=== PATIENT | female | born 1970 | race African-American/Black ===

== ENCOUNTER 2017-08-14 13:06 | Inpatient (IN) | payer BC ==
[2017-08-14] MEDS: SOD CHLORIDE 0.9% 1,000 ML IV ×4 (13:27→18:10)
[2017-08-14 14:11] LABS: ADD MAN DIFF? NO
[2017-08-14 14:17] LABS: BASOPHIL # 0.1 10^3/ul (0.0-0.1); BASOPHILS % 0.6 % (0.0-2.0); EOSINOPHILS % 0.1 % (0.0-7.0); HEMATOCRIT 52.4 % (37.0-47.0); HEMOGLOBIN 16.1 g/dl (12.0-16.0); LYMPHOCYTES # 1.9 10^3/ul (0.8-2.9); LYMPHOCYTES % 12.7 % (15.0-51.0); MEAN CORPUSCULAR HEMOGLOBIN 30.7 pg (29.0-33.0); MEAN CORPUSCULAR HGB CONC 30.7 g/dl (32.0-37.0); MONOCYTE # 0.8 10^3/ul (0.3-0.9); MONOCYTES % 5.1 % (0.0-11.0); NEUTROPHILS % 79.8 % (39.0-77.0); PLATELET COUNT 174 10^3/UL (140-415); RED BLOOD COUNT 5.24 10^6/ul (4.20-5.40); RED CELL DISTRIBUTION WIDTH 13.2 % (11.5-14.5)
[2017-08-14 14:35] LABS: ALANINE AMINOTRANSFERASE 19 IU/L (13-69); ALBUMIN 5.1 g/dl (3.3-4.9); ALBUMIN/GLOBULIN RATIO 0.94; ALKALINE PHOSPHATASE 132 IU/L (42-121); ASPARTATE AMINO TRANSFERASE 16 IU/L (15-46); BLOOD UREA NITROGEN 15 mg/dl (7-20); CALCIUM 10.2 mg/dl (8.4-10.2); CHLORIDE 103 mmol/L (97-110); POTASSIUM 4.7 mmol/L (3.5-5.1); SODIUM 145 mmol/L (135-144); TOTAL PROTEIN 10.5 g/dl (6.1-8.1)
[2017-08-14 14:40] LABS: ACETONE POSITIVE 1:1 (NEGATIVE)
[2017-08-14 14:47] LABS: ANION GAP 42 (8-16)
[2017-08-14 14:49] LABS: CARBON DIOXIDE < 5 mmol/L (21-31); GLUCOSE 571 mg/dl (70-220); TROPONIN-I < 0.012 ng/ml (0.00-0.12)
[2017-08-14 14:56] LABS: LIPASE 7020 U/L (23-300)
[2017-08-14] MEDS ORDERED: INSULIN REGULAR 10 ML INJ IV (14:59)
[2017-08-14 15:20] LABS: INR 1.03; PARTIAL THROMBOPLASTIN TIME 25.8 Sec (25.0-35.0); PROTIME 13.6 Sec (11.9-14.9); PT RATIO 1.1
[2017-08-14 16:15] LABS: Allen Test ACCEPTAB; Arterial Base Excess -28.8 mmol/L (-3.0-3); Arterial Blood Gas Oxygen Sat 98.1 mmHG (95.0-98.0); Arterial COHb 0.5 % (0.0-3.0); Arterial Fraction of Oxyhgb 97.2 % (93.0-99.0); Arterial HCO3 2.3 mmol/L (22.0-26.0); Arterial MetHb 0.4 % (0.0-1.5); Arterial pCO2 11.4 mmhg (35-45); MODE ROOM AIR; Site Right Radial
[2017-08-14] MEDS: NA BICARBONATE 8.4% 50 ML SYG IV ×2 (16:58→16:59)
[2017-08-14] MEDS: INSULIN REGULAR, HUMAN 100 UNIT/1 ML 3ML VIAL IV (17:11)
[2017-08-14] MEDS: INSULIN HUMAN REGULAR 100 UNIT in SOD CHLORIDE 0.9% 99 ML IV (17:13)
[2017-08-14] MEDS ORDERED: INSULIN HUMAN REGULAR 100 UNIT in SOD CHLORIDE 0.9% 99 ML IV (17:24)
[2017-08-14] MEDS ORDERED: DEXTROSE 50% 50 ML SYRINGE IV ×4 (17:30→18:00)
[2017-08-14] MEDS ORDERED: ACETAMINOPHEN 325 MG TAB PO (17:30)
[2017-08-14] MEDS ORDERED: ONDANSETRON 4 MG INJ IV (17:30)
[2017-08-14 17:34] LABS: ADD UMIC YES; UR ASCORBIC ACID NEGATIVE (NEGATIVE); UR BILIRUBIN (Dip) NEGATIVE (NEGATIVE); UR BLOOD (Dip) 2+ mg/dL (NEGATIVE); UR BUDDING YEAST FEW /HPF (NONE SEEN); UR CLARITY SLIGHTLY CLOUDY (CLEAR); UR COLOR YELLOW (YELLOW); UR GLUCOSE (Dip) 3+ mg/dL (NEGATIVE); UR KETONES (Dip) 2+ mg/dL (NEGATIVE); UR LEUKOCYTE ESTERASE (Dip) NEGATIVE Leu/ul (NEGATIVE); UR NITRITE (Dip) NEGATIVE (NEGATIVE); UR RBC 5 /HPF (0-5); UR SPECIFIC GRAVITY (Dip) 1.021 (1.003-1.030); UR SQUAMOUS EPITHELIAL CELL FEW /HPF (FEW); UR TOTAL PROTEIN (Dip) 2+ mg/dl (NEGATIVE); UR UROBILINOGEN (Dip) NEGATIVE (NEGATIVE); UR WBC 1 /HPF (0-5)
[2017-08-14] MEDS: ACCU-CHEK XX ×9 (18:00→23:00)
[2017-08-14] MEDS: SOD CHLORIDE 0.45% 1,000 ML IV (18:00)
[2017-08-14] MEDS ORDERED: LABETALOL HCL 20MG INJ IV (18:00)
[2017-08-14 18:09] LABS: PHOSPHORUS 9.1 mg/dl (2.5-4.9)
[2017-08-14 18:18] LABS: HDL CHOLESTEROL 44 mg/dl (37-92); TRIGLYCERIDES 504 mg/dl (0-149)
[2017-08-14] MEDS: NICOTINE (14 MG/24 HR) PATCH TRANSDERM (18:30)
[2017-08-14 18:33] LABS: CHOLESTEROL 421 mg/dl (100-200)
[2017-08-14 18:33] LABS: CHOL/HDL RATIO 9.5 RATIO; LDL CHOLESTEROL,CALCULATED 276 mg/dl
[2017-08-14 20:47] LABS: BLOOD UREA NITROGEN 13 mg/dl (7-20); CALCIUM 8.2 mg/dl (8.4-10.2); CHLORIDE 118 mmol/L (97-110); CREATININE 1.11 mg/dl (0.44-1.00); GLUCOSE 181 mg/dl (70-220); POTASSIUM 4.2 mmol/L (3.5-5.1); SODIUM 155 mmol/L (135-144)
[2017-08-14] MEDS: LACTATED RINGER'S 1,000 ML IV (20:47)
[2017-08-14 20:48] LABS: ALBUMIN 4.3 g/dl (3.3-4.9); BLOOD UREA NITROGEN 14 mg/dl (7-20); CALCIUM 8.1 mg/dl (8.4-10.2); CHLORIDE 118 mmol/L (97-110); CREATININE 1.09 mg/dl (0.44-1.00); GLUCOSE 183 mg/dl (70-220); MAGNESIUM 1.7 mg/dl (1.7-2.5); PHOSPHORUS 4.7 mg/dl (2.5-4.9); POTASSIUM 4.1 mmol/L (3.5-5.1); SODIUM 155 mmol/L (135-144)
[2017-08-14 20:52] LABS: ANION GAP 36 (8-16)
[2017-08-14 20:55] LABS: CARBON DIOXIDE < 5 mmol/L (21-31)
[2017-08-14 20:57] LABS: ANION GAP 36 (8-16); CARBON DIOXIDE < 5 mmol/L (21-31)
[2017-08-14] MEDS ORDERED: APIXABAN 5 MG TABLET PO (21:00)
[2017-08-14] MEDS: DEXTROSE 5%-0.45% NACL 1,000 ML IV (21:55)
[2017-08-14] MEDS: BENZTROPINE 1 MG TAB PO (22:23)
[2017-08-14] MEDS: ATORVASTATIN 40 MG TAB PO (22:23)
[2017-08-14] MEDS: AMITRIPTYLINE 25 MG TAB PO (22:23)
[2017-08-14] MEDS: ENOXAPARIN 80 MG/0.8 ML SYG SC (22:24)
[2017-08-15] MEDS: ACCU-CHEK XX ×24 (00:11→23:00)
[2017-08-15] MEDS: GABAPENTIN 400 MG CAP PO ×4 (00:13→21:39)
[2017-08-15] MEDS: ZIPRASIDONE 20 MG CAP PO ×2 (00:13→22:07)
[2017-08-15] MEDS: HALOPERIDOL 5 MG TAB PO ×3 (00:13→21:42)
[2017-08-15] MEDS: SOD CHLORIDE 0.45% 1,000 ML IV ×4 (00:40→20:40)
[2017-08-15] MEDS: POTASSIUM CHLORIDE 20 MEQ in SOD CHLORIDE 0.9% 1,000 ML IV (03:17)
[2017-08-15 04:03] LABS: AADO2 Arterial 43.7 mmHg (7.0-24.0); Allen Test ACCEPTAB; Arterial Base Excess -20.6 mmol/L (-3.0-3); Arterial Blood Gas Oxygen Sat 96.2 mmHG (95.0-98.0); Arterial COHb 0.3 % (0.0-3.0); Arterial Fraction of Oxyhgb 95.5 % (93.0-99.0); Arterial HCO3 5.8 mmol/L (22.0-26.0); Arterial MetHb 0.4 % (0.0-1.5); Arterial Total Hemglobin 15.2 g/dl (12.0-18.0); Arterial pCO2 16.6 mmhg (35-45); MODE ROOM AIR; Site Right Brachial
[2017-08-15 06:17] LABS: ADD MAN DIFF? NO
[2017-08-15 06:25] LABS: BASOPHILS % 0.2 % (0.0-2.0); HEMATOCRIT 48.7 % (37.0-47.0); HEMOGLOBIN 15.2 g/dl (12.0-16.0); LYMPHOCYTES # 1.7 10^3/ul (0.8-2.9); LYMPHOCYTES % 13.6 % (15.0-51.0); MEAN CORPUSCULAR HEMOGLOBIN 31.1 pg (29.0-33.0); MEAN CORPUSCULAR HGB CONC 31.2 g/dl (32.0-37.0); MEAN CORPUSCULAR VOLUME 99.8 fl (82.0-101.0); MEAN PLATELET VOLUME 11.8 fl (7.4-10.4); MONOCYTE # 0.4 10^3/ul (0.3-0.9); MONOCYTES % 3.4 % (0.0-11.0); NEUTROPHIL # 10.2 10^3/ul (1.6-7.5); NEUTROPHILS % 82.2 % (39.0-77.0); PLATELET COUNT 131 10^3/UL (140-415); RED BLOOD COUNT 4.88 10^6/ul (4.20-5.40); RED CELL DISTRIBUTION WIDTH 13.2 % (11.5-14.5)
[2017-08-15 06:25] LABS: WHITE BLOOD COUNT 12.4 10^3/ul (4.8-10.8)
[2017-08-15 09:20] LABS: ALBUMIN 3.7 g/dl (3.3-4.9); ANION GAP 26 (8-16); BLOOD UREA NITROGEN 10 mg/dl (7-20); CALCIUM 8.2 mg/dl (8.4-10.2); CHLORIDE 116 mmol/L (97-110); GLUCOSE 241 mg/dl (70-220); MAGNESIUM 1.5 mg/dl (1.7-2.5); PHOSPHORUS 1.9 mg/dl (2.5-4.9); POTASSIUM 4.1 mmol/L (3.5-5.1); SODIUM 147 mmol/L (135-144)
[2017-08-15 09:25] LABS: CARBON DIOXIDE 9 mmol/L (21-31)
[2017-08-15 10:00] LABS: AADO2 Arterial 49.6 mmHg (7.0-24.0); Allen Test ACCEPTAB; Arterial Base Excess -16.8 mmol/L (-3.0-3); Arterial Blood Gas Oxygen Sat 95.7 mmHG (95.0-98.0); Arterial COHb 0.5 % (0.0-3.0); Arterial HCO3 8.2 mmol/L (22.0-26.0); Arterial MetHb 0.2 % (0.0-1.5); Arterial Total Hemglobin 15.5 g/dl (12.0-18.0); Arterial pCO2 19.5 mmhg (35-45); MODE ROOM AIR; Site Right Radial
[2017-08-15] MEDS: NA BICARBONATE 8.4% 50 ML SYG IV (10:33)
[2017-08-15] MEDS: ENOXAPARIN 80 MG/0.8 ML SYG SC ×2 (10:33→21:41)
[2017-08-15] MEDS: NICOTINE (14 MG/24 HR) PATCH TRANSDERM (10:34)
[2017-08-15] MEDS: MEROPENEM 1 GM/50ML(PMX) 50 ML IVPB ×2 (10:34→22:07)
[2017-08-15] MEDS: SODIUM PHOSPHATE 20 MEQ in SOD CHLORIDE 0.9% 250 ML IVPB (10:57)
[2017-08-15] MEDS: MAGNESIUM SULFATE 2 GM/50 ML 50 ML IVPB (10:57)
[2017-08-15] MEDS: BENZTROPINE 1 MG TAB PO ×2 (10:58→21:43)
[2017-08-15] MEDS: IOHEXOL 300MG/ML 150 ML BTL (12:25)
[2017-08-15] MEDS: SOD CHLORIDE 0.9% 100 ML (12:36)
[2017-08-15 12:42] LABS: ALBUMIN 3.7 g/dl (3.3-4.9); ANION GAP 25 (8-16); BLOOD UREA NITROGEN 8 mg/dl (7-20); CALCIUM 8.4 mg/dl (8.4-10.2); CARBON DIOXIDE 13 mmol/L (21-31); CHLORIDE 114 mmol/L (97-110); CREATININE 0.78 mg/dl (0.44-1.00); GLUCOSE 192 mg/dl (70-220); MAGNESIUM 2.3 mg/dl (1.7-2.5); PHOSPHORUS 1.8 mg/dl (2.5-4.9); POTASSIUM 3.4 mmol/L (3.5-5.1); SODIUM 149 mmol/L (135-144)
[2017-08-15] MEDS: SODIUM BICARBONATE (IV ADD) 150 MEQ in DEXTROSE 5%-0.45% NACL 850 ML IV ×2 (12:51→22:08)
[2017-08-15] MEDS: POTASSIUM CHLORIDE 100 ML IVPB ×2 (16:59→17:00)
[2017-08-15 17:50] LABS: ALBUMIN 3.6 g/dl (3.3-4.9); ANION GAP 22 (8-16); BLOOD UREA NITROGEN 7 mg/dl (7-20); CALCIUM 8.2 mg/dl (8.4-10.2); CARBON DIOXIDE 16 mmol/L (21-31); CHLORIDE 113 mmol/L (97-110); CREATININE 0.78 mg/dl (0.44-1.00); GLUCOSE 157 mg/dl (70-220); MAGNESIUM 2.1 mg/dl (1.7-2.5); PHOSPHORUS 1.8 mg/dl (2.5-4.9); POTASSIUM 3.6 mmol/L (3.5-5.1); SODIUM 147 mmol/L (135-144)
[2017-08-15 21:40] LABS: MAGNESIUM 2.1 mg/dl (1.7-2.5)
[2017-08-15] MEDS: ATORVASTATIN 40 MG TAB PO (21:40)
[2017-08-15] MEDS: INSULIN HUMAN REGULAR 100 UNIT in SOD CHLORIDE 0.9% 99 ML IV (21:52)
[2017-08-15] MEDS: AMITRIPTYLINE 25 MG TAB PO (22:07)
[2017-08-16] MEDS: ACCU-CHEK XX ×24 (01:00→23:18)
[2017-08-16 01:50] LABS: MAGNESIUM 2.1 mg/dl (1.7-2.5)
[2017-08-16] MEDS: SODIUM BICARBONATE (IV ADD) 150 MEQ in DEXTROSE 5%-0.45% NACL 850 ML IV ×2 (02:00→10:00)
[2017-08-16] MEDS: SOD CHLORIDE 0.45% 1,000 ML IV ×2 (03:20→10:00)
[2017-08-16] MEDS: GUAIFENESIN 20 MG/ML 5ML CUP PO ×2 (06:26→10:43)
[2017-08-16 06:27] LABS: ADD MAN DIFF? NO
[2017-08-16 06:40] LABS: BASOPHIL # 0.1 10^3/ul (0.0-0.1); BASOPHILS % 0.6 % (0.0-2.0); HEMATOCRIT 39.3 % (37.0-47.0); HEMOGLOBIN 13.6 g/dl (12.0-16.0); LYMPHOCYTES # 0.7 10^3/ul (0.8-2.9); LYMPHOCYTES % 8.4 % (15.0-51.0); MEAN CORPUSCULAR HEMOGLOBIN 31.9 pg (29.0-33.0); MEAN CORPUSCULAR HGB CONC 34.6 g/dl (32.0-37.0); MEAN PLATELET VOLUME 12.2 fl (7.4-10.4); MONOCYTE # 0.3 10^3/ul (0.3-0.9); MONOCYTES % 3.1 % (0.0-11.0); NEUTROPHIL # 7.1 10^3/ul (1.6-7.5); NEUTROPHILS % 87.3 % (39.0-77.0); PLATELET COUNT 109 10^3/UL (140-415); RED BLOOD COUNT 4.27 10^6/ul (4.20-5.40); RED CELL DISTRIBUTION WIDTH 13.6 % (11.5-14.5)
[2017-08-16 06:40] LABS: WHITE BLOOD COUNT 8.1 10^3/ul (4.8-10.8)
[2017-08-16] MEDS: BENZTROPINE 1 MG TAB PO (09:00)
[2017-08-16] MEDS: HALOPERIDOL 5 MG TAB PO (09:00)
[2017-08-16] MEDS: GABAPENTIN 400 MG CAP PO ×3 (09:00→19:31)
[2017-08-16 09:07] LABS: AADO2 Arterial 263.2 mmHg (7.0-24.0); Allen Test ACCEPTAB; Arterial Base Excess -9.9 mmol/L (-3.0-3); Arterial Blood Gas Oxygen Sat 91.4 mmHG (95.0-98.0); Arterial COHb 0.8 % (0.0-3.0); Arterial Fraction of Oxyhgb 90.5 % (93.0-99.0); Arterial HCO3 13.4 mmol/L (22.0-26.0); Arterial MetHb 0.2 % (0.0-1.5); Arterial Total Hemglobin 14.9 g/dl (12.0-18.0); Arterial pCO2 23.9 mmhg (35-45); MODE MASK - SIMPLE; Site Right Radial
[2017-08-16 10:02] LABS: MAGNESIUM 2.2 mg/dl (1.7-2.5)
[2017-08-16] MEDS: MEROPENEM 1 GM/50ML(PMX) 50 ML IVPB (10:23)
[2017-08-16 10:32] LABS: ALBUMIN 3.4 g/dl (3.3-4.9); ANION GAP 24 (8-16); BLOOD UREA NITROGEN 5 mg/dl (7-20); CALCIUM 8.6 mg/dl (8.4-10.2); CARBON DIOXIDE 15 mmol/L (21-31); CHLORIDE 115 mmol/L (97-110); CREATININE 0.82 mg/dl (0.44-1.00); GLUCOSE 200 mg/dl (70-220); PHOSPHORUS 1.6 mg/dl (2.5-4.9); POTASSIUM 3.1 mmol/L (3.5-5.1); SODIUM 151 mmol/L (135-144)
[2017-08-16] MEDS: HALOPERIDOL 5 MG INJ IM (10:34)
[2017-08-16] MEDS: ENOXAPARIN 80 MG/0.8 ML SYG SC ×2 (10:36→21:26)
[2017-08-16] MEDS: NICOTINE (14 MG/24 HR) PATCH TRANSDERM (10:44)
[2017-08-16] MEDS: POTASSIUM PHOSPHATE 40 MEQ in SOD CHLORIDE 0.9% 250 ML IVPB (11:30)
[2017-08-16] MEDS ORDERED: POTASSIUM CHLORIDE IV (12:00)
[2017-08-16] MEDS ORDERED: DEXTROSE 5% IV (12:00)
[2017-08-16] MEDS ORDERED: SODIUM BICARBONATE IV (12:00)
[2017-08-16] MEDS ORDERED: ALBUTEROL/IPRATROPIUM (NEB) 3 ML AMP HHN (13:00)
[2017-08-16] MEDS: ALBUTEROL/IPRATROPIUM (NEB) 3 ML AMP HHN ×2 (13:47→20:56)
[2017-08-16 13:48] LABS: MAGNESIUM 2.2 mg/dl (1.7-2.5)
[2017-08-16] MEDS: morphine 2 MG INJ IV (14:12)
[2017-08-16 14:32] LABS: LIPASE 1288 U/L (23-300)
[2017-08-16 15:14] LABS: AADO2 Arterial 619.2 mmHg (7.0-24.0); Allen Test ACCEPTAB; Arterial Base Excess -15.2 mmol/L (-3.0-3); Arterial Blood Gas Oxygen Sat 91.9 mmHG (95.0-98.0); Arterial COHb 0.5 % (0.0-3.0); Arterial Fraction of Oxyhgb 91.2 % (93.0-99.0); Arterial HCO3 10.6 mmol/L (22.0-26.0); Arterial MetHb 0.3 % (0.0-1.5); Arterial Total Hemglobin 15.5 g/dl (12.0-18.0); MODE MASK - NRB; Site Right Radial
[2017-08-16] MEDS: LIDOCAINE 1% (MPF) 5 ML VIAL SC (16:20)
[2017-08-16 16:38] LABS: CREATININE, RANDOM URINE 42 mg/dL (20-320); MICROALBUMIN 40.7 mg/dL; MICROALBUMIN/CREATININE RATIO 969 (<30)
[2017-08-16] MEDS: NA BICARBONATE 8.4% 50 ML SYG IV (16:57)
[2017-08-16] MEDS: [UNRECOGNIZED DRUG - OTHER] IV (17:00)
[2017-08-16] MEDS: SODIUM BICARBONATE IV (17:00)
[2017-08-16] MEDS: POTASSIUM CHLORIDE IV (17:00)
[2017-08-16] MEDS: SOD CHLORIDE 0.9% 100 ML (18:59)
[2017-08-16] MEDS: ATORVASTATIN 40 MG TAB PO (19:30)
[2017-08-16 19:31] LABS: ALBUMIN 3.2 g/dl (3.3-4.9); ANION GAP 27 (8-16); BLOOD UREA NITROGEN 6 mg/dl (7-20); CARBON DIOXIDE 17 mmol/L (21-31); CHLORIDE 114 mmol/L (97-110); CREATININE 0.85 mg/dl (0.44-1.00); GLUCOSE 369 mg/dl (70-220); PHOSPHORUS 2.7 mg/dl (2.5-4.9); POTASSIUM 3.9 mmol/L (3.5-5.1); SODIUM 154 mmol/L (135-144)
[2017-08-16] MEDS: AMITRIPTYLINE 25 MG TAB PO (19:31)
[2017-08-16] MEDS: ZIPRASIDONE 20 MG CAP PO (19:31)
[2017-08-16] MEDS: CEFEPIME 1GM/50 ML (PMX) 50 ML IVPB (21:23)
[2017-08-16] MEDS: BENZTROPINE 2 MG INJ IM (21:40)
[2017-08-16 22:34] LABS: MAGNESIUM 2.1 mg/dl (1.7-2.5)
[2017-08-17] MEDS: ACCU-CHEK XX ×19 (00:23→23:00)
[2017-08-17] MEDS: DEXTROSE 5% IV ×2 (00:26→09:15)
[2017-08-17] MEDS: SODIUM BICARBONATE IV (00:26)
[2017-08-17] MEDS: POTASSIUM CHLORIDE IV (00:26)
[2017-08-17] MEDS: INSULIN HUMAN REGULAR 100 UNIT in SOD CHLORIDE 0.9% 99 ML IV ×2 (00:35→21:04)
[2017-08-17] MEDS: morphine 2 MG INJ IV (00:37)
[2017-08-17] MEDS: ALBUTEROL/IPRATROPIUM (NEB) 3 ML AMP HHN (01:04)
[2017-08-17 01:06] LABS: MAGNESIUM 2.2 mg/dl (1.7-2.5)
[2017-08-17 01:15] LABS: POTASSIUM 3.6 mmol/L (3.5-5.1)
[2017-08-17 01:42] LABS: ALBUMIN 3.2 g/dl (3.3-4.9); ANION GAP 17 (8-16); BLOOD UREA NITROGEN 7 mg/dl (7-20); CALCIUM 8.5 mg/dl (8.4-10.2); CARBON DIOXIDE 29 mmol/L (21-31); CHLORIDE 115 mmol/L (97-110); CREATININE 0.73 mg/dl (0.44-1.00); GLUCOSE 253 mg/dl (70-220); PHOSPHORUS 0.8 mg/dl (2.5-4.9); POTASSIUM 3.6 mmol/L (3.5-5.1); SODIUM 157 mmol/L (135-144)
[2017-08-17] MEDS ORDERED: IPRATROPIUM (NEB) 0.5 MG/2.5 ML AMP HHN (04:30)
[2017-08-17] MEDS ORDERED: LEVALBUTEROL (NEB) 0.63 MG/3 ML AMP HHN (04:30)
[2017-08-17 06:29] LABS: WHITE BLOOD COUNT 10.8 10^3/ul (4.8-10.8)
[2017-08-17 06:29] LABS: ABNORMAL IP MESSAGE 1; HEMATOCRIT 38.5 % (37.0-47.0); HEMOGLOBIN 13.1 g/dl (12.0-16.0); MEAN CORPUSCULAR HEMOGLOBIN 30.9 pg (29.0-33.0); MEAN CORPUSCULAR VOLUME 90.8 fl (82.0-101.0); MEAN PLATELET VOLUME 12.3 fl (7.4-10.4); PLATELET COUNT 93 10^3/UL (140-415); RED BLOOD COUNT 4.24 10^6/ul (4.20-5.40)
[2017-08-17 06:33] LABS: ALBUMIN 3.4 g/dl (3.3-4.9); ANION GAP 18 (8-16); BLOOD UREA NITROGEN 7 mg/dl (7-20); CALCIUM 8.9 mg/dl (8.4-10.2); CARBON DIOXIDE 29 mmol/L (21-31); CHLORIDE 116 mmol/L (97-110); CREATININE 0.75 mg/dl (0.44-1.00); GLUCOSE 109 mg/dl (70-220); SODIUM 160 mmol/L (135-144)
[2017-08-17 06:35] LABS: ADD MAN DIFF? YES; POSITIVE DIFF @See below
[2017-08-17 06:51] LABS: POTASSIUM 2.8 mmol/L (3.5-5.1)
[2017-08-17 07:41] LABS: LIPASE 545 U/L (23-300)
[2017-08-17] MEDS: IPRATROPIUM (NEB) 0.5 MG/2.5 ML AMP HHN ×3 (08:00→20:08)
[2017-08-17] MEDS: LEVALBUTEROL (NEB) 0.63 MG/3 ML AMP HHN ×3 (08:00→20:08)
[2017-08-17 08:15] LABS: BAND NEUTROPHILS #M 2.4 10^3/ul (0.0-0.6); BAND NEUTROPHILS % (M) 23 % (0-4); LYMPHOCYTES #M 1.6 10^3/ul (0.8-2.9); LYMPHOCYTES % (M) 15 % (15-51); MONOCYTE #M 0.2 10^3/ul (0.3-0.9); MONOCYTES % (M) 2 % (0-11); PLATELET ESTIMATE DECREASED; POLYCHROMASIA 2+ (0-0); SEG NEUT #M 6.7 10^3/ul (1.6-7.5); SEGMENTED NEUTROPHILS (M) % 60 % (39-77); SMUDGE%M 4 % (0-0)
[2017-08-17] MEDS: GABAPENTIN 400 MG CAP PO ×3 (09:00→20:10)
[2017-08-17] MEDS ORDERED: ASPIRIN 300 MG SUPP PR (09:30)
[2017-08-17] MEDS: HALOPERIDOL 5 MG INJ IM (09:43)
[2017-08-17] MEDS: BENZTROPINE 2 MG INJ IM ×2 (09:52→20:47)
[2017-08-17] MEDS: NICOTINE (14 MG/24 HR) PATCH TRANSDERM (09:58)
[2017-08-17] MEDS: ENOXAPARIN 80 MG/0.8 ML SYG SC ×2 (09:59→20:45)
[2017-08-17] MEDS ORDERED: GLUCAGON 1 MG INJ IM (10:00)
[2017-08-17] MEDS ORDERED: DEXTROSE 50% 50 ML SYRINGE IV ×3 (10:00→18:00)
[2017-08-17] MEDS ORDERED: GLUCOSE GEL 15 GRAM TUBE PO ×2 (10:00)
[2017-08-17] MEDS ORDERED: GLUCOSE GEL 15 GRAM TUBE BUCCAL (10:00)
[2017-08-17] MEDS: POTASSIUM CHLORIDE 20 MEQ/SW 100 ML IVPB (10:01)
[2017-08-17] MEDS: DEXTROSE 5% 1,000 ML IV ×2 (10:06→18:24)
[2017-08-17] MEDS: CEFEPIME 1GM/50 ML (PMX) 50 ML IVPB ×2 (10:24→20:45)
[2017-08-17] MEDS: INSULIN GLARGINE [LANtus] 3 ML PEN SC (11:38)
[2017-08-17] MEDS: POTASSIUM PHOSPHATE 30 MM in SOD CHLORIDE 0.9% 250 ML IVPB (12:26)
[2017-08-17] MEDS: POTASSIUM CHLORIDE 10 MEQ in SOD CHLORIDE 0.9% 100 ML IVPB (12:35)
[2017-08-17] MEDS: INSULIN ASPART [NOVOLOG] 3 ML PEN SC ×2 (14:03→17:00)
[2017-08-17 15:28] LABS: ALBUMIN 3.4 g/dl (3.3-4.9); ANION GAP 22 (8-16); BLOOD UREA NITROGEN 9 mg/dl (7-20); CALCIUM 8.5 mg/dl (8.4-10.2); CARBON DIOXIDE 22 mmol/L (21-31); CHLORIDE 113 mmol/L (97-110); CREATININE 0.77 mg/dl (0.44-1.00); GLUCOSE 264 mg/dl (70-220); PHOSPHORUS 2.1 mg/dl (2.5-4.9); POTASSIUM 3.4 mmol/L (3.5-5.1); SODIUM 154 mmol/L (135-144)
[2017-08-17 18:23] LABS: AADO2 Arterial 632.2 mmHg (7.0-24.0); Allen Test ACCEPTAB; Arterial Base Excess -10.8 mmol/L (-3.0-3); Arterial Blood Gas Oxygen Sat 89.8 mmHG (95.0-98.0); Arterial COHb 0.5 % (0.0-3.0); Arterial Fraction of Oxyhgb 89.3 % (93.0-99.0); Arterial HCO3 12.6 mmol/L (22.0-26.0); Arterial MetHb 0.1 % (0.0-1.5); Arterial Total Hemglobin 13.7 g/dl (12.0-18.0); Arterial pCO2 23.2 mmhg (35-45); MODE MASK - NRB; Site Left Radial
[2017-08-17] MEDS: METHYLPREDNISOLONE 125 MG INJ IV ×2 (18:31→23:43)
[2017-08-17 19:18] LABS: ALBUMIN 3.5 g/dl (3.3-4.9); ANION GAP 30 (8-16); BLOOD UREA NITROGEN 8 mg/dl (7-20); CALCIUM 8.8 mg/dl (8.4-10.2); CARBON DIOXIDE 14 mmol/L (21-31); CHLORIDE 113 mmol/L (97-110); CREATININE 0.86 mg/dl (0.44-1.00); GLUCOSE 352 mg/dl (70-220); MAGNESIUM 2.3 mg/dl (1.7-2.5); PHOSPHORUS 2.5 mg/dl (2.5-4.9); POTASSIUM 3.3 mmol/L (3.5-5.1); SODIUM 154 mmol/L (135-144)
[2017-08-17 19:24] LABS: B-TYPE NATRIURETIC PEPTIDE 273 PG/ML (0-125)
[2017-08-17] MEDS: SODIUM BICARBONATE (IV ADD) 150 MEQ in DEXTROSE 5% 1,000 ML IV (19:30)
[2017-08-17] MEDS ORDERED: POTASSIUM CHLORIDE 50 ML IVPB (20:00)
[2017-08-17] MEDS ORDERED: INSULIN GLARGINE [LANtus] 3 ML PEN SC (20:00)
[2017-08-17] MEDS: ATORVASTATIN 40 MG TAB PO (20:11)
[2017-08-17] MEDS: AMITRIPTYLINE 25 MG TAB PO (20:11)
[2017-08-17] MEDS: ZIPRASIDONE 20 MG CAP PO (20:11)
[2017-08-17] MEDS: HALOPERIDOL 5 MG TAB PO (20:18)
[2017-08-17] MEDS: POTASSIUM CHLORIDE 100 ML IVPB ×2 (21:15→23:42)
[2017-08-17 21:46] LABS: AADO2 Arterial 495.4 mmHg (7.0-24.0); Allen Test ACCEPTAB; Arterial Base Excess -13.4 mmol/L (-3.0-3); Arterial COHb 0.5 % (0.0-3.0); Arterial Fraction of Oxyhgb 98.1 % (93.0-99.0); Arterial HCO3 12.8 mmol/L (22.0-26.0); Arterial MetHb 0.4 % (0.0-1.5); Arterial Total Hemglobin 13.7 g/dl (12.0-18.0); Arterial pCO2 31.2 mmhg (35-45); Blood Gas IEPAP 15/5; MODE MASK - BIPAP; Site Left Radial
[2017-08-18] MEDS: ACCU-CHEK XX ×25 (00:09→23:01)
[2017-08-18] MEDS: IPRATROPIUM (NEB) 0.5 MG/2.5 ML AMP HHN ×4 (01:26→19:58)
[2017-08-18] MEDS: LEVALBUTEROL (NEB) 0.63 MG/3 ML AMP HHN ×4 (01:26→19:58)
[2017-08-18] MEDS: GUAIFENESIN 20 MG/ML 5ML CUP PO ×3 (01:51→21:34)
[2017-08-18 02:51] LABS: ALBUMIN 3.6 g/dl (3.3-4.9); ANION GAP 17 (8-16); BLOOD UREA NITROGEN 10 mg/dl (7-20); CALCIUM 8.8 mg/dl (8.4-10.2); CARBON DIOXIDE 26 mmol/L (21-31); CHLORIDE 114 mmol/L (97-110); GLUCOSE 139 mg/dl (70-220); MAGNESIUM 2.5 mg/dl (1.7-2.5); PHOSPHORUS 1.8 mg/dl (2.5-4.9); POTASSIUM 4.2 mmol/L (3.5-5.1); SODIUM 153 mmol/L (135-144)
[2017-08-18] MEDS: POTASSIUM CHLORIDE 10 MEQ in DEXTROSE 5% 1,000 ML IV ×3 (03:35→23:44)
[2017-08-18] MEDS: POTASSIUM PHOSPHATE 30 MM in SOD CHLORIDE 0.9% 250 ML IVPB (03:36)
[2017-08-18] MEDS: METHYLPREDNISOLONE 125 MG INJ IV (05:30)
[2017-08-18 06:41] LABS: ALBUMIN 3.2 g/dl (3.3-4.9); ANION GAP 16 (8-16); BLOOD UREA NITROGEN 10 mg/dl (7-20); CALCIUM 8.4 mg/dl (8.4-10.2); CARBON DIOXIDE 25 mmol/L (21-31); CHLORIDE 114 mmol/L (97-110); CREATININE 0.76 mg/dl (0.44-1.00); GLUCOSE 214 mg/dl (70-220); MAGNESIUM 2.4 mg/dl (1.7-2.5); PHOSPHORUS 2.8 mg/dl (2.5-4.9); POTASSIUM 4.3 mmol/L (3.5-5.1); SODIUM 151 mmol/L (135-144)
[2017-08-18 06:49] LABS: ADD MAN DIFF? NO
[2017-08-18 06:59] LABS: ABNORMAL IP MESSAGE 1; BASOPHILS % 0.1 % (0.0-2.0); HEMATOCRIT 35.2 % (37.0-47.0); HEMOGLOBIN 11.9 g/dl (12.0-16.0); LYMPHOCYTES # 0.5 10^3/ul (0.8-2.9); LYMPHOCYTES % 5.9 % (15.0-51.0); MEAN CORPUSCULAR HEMOGLOBIN 31.4 pg (29.0-33.0); MEAN CORPUSCULAR HGB CONC 33.8 g/dl (32.0-37.0); MEAN CORPUSCULAR VOLUME 92.9 fl (82.0-101.0); MEAN PLATELET VOLUME 12.5 fl (7.4-10.4); MONOCYTE # 0.2 10^3/ul (0.3-0.9); MONOCYTES % 2.4 % (0.0-11.0); NEUTROPHIL # 8.3 10^3/ul (1.6-7.5); NEUTROPHILS % 91.3 % (39.0-77.0); PLATELET COUNT 89 10^3/UL (140-415); POSITIVE DIFF @See below; RED BLOOD COUNT 3.79 10^6/ul (4.20-5.40); RED CELL DISTRIBUTION WIDTH 14.6 % (11.5-14.5)
[2017-08-18 08:22] LABS: AADO2 Arterial 494.7 mmHg (7.0-24.0); Allen Test ACCEPTAB; Arterial Base Excess -2.3 mmol/L (-3.0-3); Arterial Blood Gas Oxygen Sat 97.7 mmHG (95.0-98.0); Arterial COHb 0.5 % (0.0-3.0); Arterial HCO3 23.3 mmol/L (22.0-26.0); Arterial MetHb 0.2 % (0.0-1.5); Arterial Total Hemglobin 13.4 g/dl (12.0-18.0); Arterial pCO2 42.8 mmhg (35-45); Blood Gas IEPAP 15/5; Blood Gas PS 10; MODE BIPAP - S/T; Site Left Radial
[2017-08-18] MEDS: GABAPENTIN 400 MG CAP PO ×3 (09:01→20:55)
[2017-08-18] MEDS: CEFEPIME 1GM/50 ML (PMX) 50 ML IVPB ×2 (09:01→20:54)
[2017-08-18] MEDS: HALOPERIDOL 5 MG TAB PO ×2 (09:02→20:55)
[2017-08-18] MEDS: ENOXAPARIN 80 MG/0.8 ML SYG SC ×2 (09:03→22:01)
[2017-08-18] MEDS: NICOTINE (14 MG/24 HR) PATCH TRANSDERM (09:05)
[2017-08-18] MEDS: BENZTROPINE 1 MG TAB PO ×2 (10:21→21:34)
[2017-08-18] MEDS: INSULIN HUMAN REGULAR 100 UNIT in SOD CHLORIDE 0.9% 99 ML IV (15:28)
[2017-08-18 18:31] LABS: ALBUMIN 2.9 g/dl (3.3-4.9); ANION GAP 15 (8-16); BLOOD UREA NITROGEN 11 mg/dl (7-20); CALCIUM 8.1 mg/dl (8.4-10.2); CARBON DIOXIDE 25 mmol/L (21-31); CHLORIDE 114 mmol/L (97-110); GLUCOSE 205 mg/dl (70-220); PHOSPHORUS 2.8 mg/dl (2.5-4.9); POTASSIUM 4.3 mmol/L (3.5-5.1); SODIUM 150 mmol/L (135-144)
[2017-08-18 20:54] LABS: ADD MAN DIFF? NO
[2017-08-18] MEDS: METHYLPREDNISOLONE 40 MG INJ IV (20:54)
[2017-08-18 20:55] LABS: ABNORMAL IP MESSAGE 1; BASOPHILS % 0.1 % (0.0-2.0); HEMATOCRIT 34.1 % (37.0-47.0); HEMOGLOBIN 11.6 g/dl (12.0-16.0); LYMPHOCYTES # 1.1 10^3/ul (0.8-2.9); LYMPHOCYTES % 9.6 % (15.0-51.0); MEAN CORPUSCULAR HEMOGLOBIN 30.9 pg (29.0-33.0); MEAN CORPUSCULAR VOLUME 90.7 fl (82.0-101.0); MEAN PLATELET VOLUME 11.8 fl (7.4-10.4); MONOCYTE # 0.5 10^3/ul (0.3-0.9); MONOCYTES % 4.3 % (0.0-11.0); NEUTROPHIL # 9.3 10^3/ul (1.6-7.5); NEUTROPHILS % 85.6 % (39.0-77.0); PLATELET COUNT 96 10^3/UL (140-415); RED BLOOD COUNT 3.76 10^6/ul (4.20-5.40); RED CELL DISTRIBUTION WIDTH 14.3 % (11.5-14.5)
[2017-08-18 20:55] LABS: WHITE BLOOD COUNT 10.9 10^3/ul (4.8-10.8)
[2017-08-18] MEDS: AMITRIPTYLINE 25 MG TAB PO (20:55)
[2017-08-18] MEDS: ATORVASTATIN 40 MG TAB PO (20:55)
[2017-08-18] MEDS: ZIPRASIDONE 20 MG CAP PO (20:55)
[2017-08-19] MEDS: ACCU-CHEK XX ×26 (00:03→22:24)
[2017-08-19] MEDS: IPRATROPIUM (NEB) 0.5 MG/2.5 ML AMP HHN ×4 (01:48→19:49)
[2017-08-19] MEDS: LEVALBUTEROL (NEB) 0.63 MG/3 ML AMP HHN ×4 (01:48→19:49)
[2017-08-19] MEDS: INSULIN HUMAN REGULAR 100 UNIT in SOD CHLORIDE 0.9% 99 ML IV (04:25)
[2017-08-19 04:54] LABS: ADD MAN DIFF? NO
[2017-08-19 05:02] LABS: BASOPHILS % 0.1 % (0.0-2.0); HEMATOCRIT 35.3 % (37.0-47.0); LYMPHOCYTES # 0.8 10^3/ul (0.8-2.9); LYMPHOCYTES % 7.7 % (15.0-51.0); MEAN CORPUSCULAR HEMOGLOBIN 30.8 pg (29.0-33.0); MEAN CORPUSCULAR VOLUME 90.7 fl (82.0-101.0); MEAN PLATELET VOLUME 11.8 fl (7.4-10.4); MONOCYTE # 0.4 10^3/ul (0.3-0.9); MONOCYTES % 3.5 % (0.0-11.0); NEUTROPHILS % 88.1 % (39.0-77.0); PLATELET COUNT 103 10^3/UL (140-415); RED BLOOD COUNT 3.89 10^6/ul (4.20-5.40); RED CELL DISTRIBUTION WIDTH 14.3 % (11.5-14.5)
[2017-08-19 05:02] LABS: WHITE BLOOD COUNT 10.2 10^3/ul (4.8-10.8)
[2017-08-19 05:26] LABS: ALANINE AMINOTRANSFERASE 30 IU/L (13-69); ALBUMIN 3.2 g/dl (3.3-4.9); ALBUMIN/GLOBULIN RATIO 0.86; ALKALINE PHOSPHATASE 184 IU/L (42-121); ANION GAP 10 (8-16); ASPARTATE AMINO TRANSFERASE 41 IU/L (15-46); BILIRUBIN,INDIRECT 0.3 mg/dl (0-1.1); BILIRUBIN,TOTAL 0.3 mg/dl (0.2-1.3); BLOOD UREA NITROGEN 11 mg/dl (7-20); CALCIUM 8.8 mg/dl (8.4-10.2); CARBON DIOXIDE 29 mmol/L (21-31); CHLORIDE 111 mmol/L (97-110); CREATININE 0.77 mg/dl (0.44-1.00); GLUCOSE 168 mg/dl (70-220); POTASSIUM 3.8 mmol/L (3.5-5.1); SODIUM 146 mmol/L (135-144); TOTAL PROTEIN 6.9 g/dl (6.1-8.1)
[2017-08-19 05:36] LABS: LIPASE 426 U/L (23-300)
[2017-08-19] MEDS: CEFEPIME 1GM/50 ML (PMX) 50 ML IVPB ×2 (08:39→20:52)
[2017-08-19] MEDS: METHYLPREDNISOLONE 40 MG INJ IV ×2 (08:39→20:52)
[2017-08-19] MEDS: GABAPENTIN 400 MG CAP PO ×3 (08:40→20:52)
[2017-08-19] MEDS: BENZTROPINE 1 MG TAB PO ×2 (08:40→20:51)
[2017-08-19] MEDS: NICOTINE (14 MG/24 HR) PATCH TRANSDERM (08:42)
[2017-08-19] MEDS: HALOPERIDOL 5 MG TAB PO ×2 (08:42→20:51)
[2017-08-19] MEDS: POTASSIUM CHLORIDE 10 MEQ in DEXTROSE 5% 1,000 ML IV ×2 (08:44→19:52)
[2017-08-19] MEDS ORDERED: POTASSIUM CHLORIDE 50 ML (08:44)
[2017-08-19] MEDS: ENOXAPARIN 80 MG/0.8 ML SYG SC ×2 (09:01→21:00)
[2017-08-19] MEDS: POTASSIUM CHLORIDE 50 ML IVPB (16:40)
[2017-08-19 19:34] LABS: POTASSIUM 3.8 mmol/L (3.5-5.1)
[2017-08-19 19:45] LABS: MAGNESIUM 2.3 mg/dl (1.7-2.5)
[2017-08-19] MEDS: ZIPRASIDONE 20 MG CAP PO (20:51)
[2017-08-19] MEDS: ATORVASTATIN 40 MG TAB PO (20:51)
[2017-08-19] MEDS: GUAIFENESIN 20 MG/ML 5ML CUP PO (20:51)
[2017-08-19] MEDS: AMITRIPTYLINE 25 MG TAB PO (20:52)
[2017-08-19] MEDS: POTASSIUM CHLORIDE 10 MEQ in SOD CHLORIDE 0.9% 100 ML IVPB (21:59)
[2017-08-20] MEDS: ACCU-CHEK XX ×25 (00:02→23:50)
[2017-08-20] MEDS: LEVALBUTEROL (NEB) 0.63 MG/3 ML AMP HHN ×4 (01:26→19:06)
[2017-08-20] MEDS: IPRATROPIUM (NEB) 0.5 MG/2.5 ML AMP HHN ×4 (01:26→19:06)
[2017-08-20 05:12] LABS: ADD MAN DIFF? NO
[2017-08-20 05:17] LABS: WHITE BLOOD COUNT 5.6 10^3/ul (4.8-10.8)
[2017-08-20 05:17] LABS: ABNORMAL IP MESSAGE 1; BASOPHILS % 0.4 % (0.0-2.0); HEMATOCRIT 34.4 % (37.0-47.0); HEMOGLOBIN 11.4 g/dl (12.0-16.0); LYMPHOCYTES # 0.6 10^3/ul (0.8-2.9); LYMPHOCYTES % 9.8 % (15.0-51.0); MEAN CORPUSCULAR HEMOGLOBIN 30.9 pg (29.0-33.0); MEAN CORPUSCULAR HGB CONC 33.1 g/dl (32.0-37.0); MEAN CORPUSCULAR VOLUME 93.2 fl (82.0-101.0); MEAN PLATELET VOLUME 11.9 fl (7.4-10.4); MONOCYTE # 0.3 10^3/ul (0.3-0.9); NEUTROPHIL # 4.7 10^3/ul (1.6-7.5); NEUTROPHILS % 84.1 % (39.0-77.0); PLATELET COUNT 132 10^3/UL (140-415); RED BLOOD COUNT 3.69 10^6/ul (4.20-5.40); RED CELL DISTRIBUTION WIDTH 14.5 % (11.5-14.5)
[2017-08-20 05:26] LABS: POSITIVE DIFF @See below
[2017-08-20 05:40] LABS: ALANINE AMINOTRANSFERASE 28 IU/L (13-69); ALBUMIN 2.8 g/dl (3.3-4.9); ALBUMIN/GLOBULIN RATIO 0.82; ALKALINE PHOSPHATASE 162 IU/L (42-121); ANION GAP 15 (8-16); ASPARTATE AMINO TRANSFERASE 26 IU/L (15-46); BILIRUBIN,INDIRECT 0.3 mg/dl (0-1.1); BILIRUBIN,TOTAL 0.3 mg/dl (0.2-1.3); BLOOD UREA NITROGEN 11 mg/dl (7-20); CALCIUM 8.7 mg/dl (8.4-10.2); CARBON DIOXIDE 27 mmol/L (21-31); CHLORIDE 110 mmol/L (97-110); CREATININE 0.67 mg/dl (0.44-1.00); GLUCOSE 164 mg/dl (70-220); POTASSIUM 3.6 mmol/L (3.5-5.1); SODIUM 148 mmol/L (135-144); TOTAL PROTEIN 6.2 g/dl (6.1-8.1)
[2017-08-20] MEDS: POTASSIUM CHLORIDE 10 MEQ in DEXTROSE 5% 1,000 ML IV ×2 (05:57→17:11)
[2017-08-20 08:00] LABS: AADO2 Arterial 271.6 mmHg (7.0-24.0); Allen Test ACCEPTAB; Arterial Base Excess 0.1 mmol/L (-3.0-3); Arterial Blood Gas Oxygen Sat 95.1 mmHG (95.0-98.0); Arterial COHb 0.9 % (0.0-3.0); Arterial Fraction of Oxyhgb 94.1 % (93.0-99.0); Arterial HCO3 25.3 mmol/L (22.0-26.0); Arterial MetHb 0.2 % (0.0-1.5); Arterial Total Hemglobin 15.1 g/dl (12.0-18.0); Arterial pCO2 42.7 mmhg (35-45); Blood Gas IEPAP 15/5; MODE MASK - BIPAP; Site Right Radial
[2017-08-20] MEDS: METHYLPREDNISOLONE 40 MG INJ IV ×2 (08:01→21:07)
[2017-08-20] MEDS: BENZTROPINE 1 MG TAB PO ×2 (08:01→20:59)
[2017-08-20] MEDS: GABAPENTIN 400 MG CAP PO ×3 (08:02→21:00)
[2017-08-20] MEDS: HALOPERIDOL 5 MG TAB PO ×2 (08:02→21:00)
[2017-08-20] MEDS: CEFEPIME 1GM/50 ML (PMX) 50 ML IVPB ×2 (08:02→21:07)
[2017-08-20] MEDS: ENOXAPARIN 80 MG/0.8 ML SYG SC ×2 (08:04→21:10)
[2017-08-20] MEDS: NICOTINE (14 MG/24 HR) PATCH TRANSDERM (08:11)
[2017-08-20] MEDS: POTASSIUM CHLORIDE 20 MEQ/SW 100 ML IVPB (09:00)
[2017-08-20] MEDS: FUROSEMIDE 40 MG INJ IV (11:00)
[2017-08-20] MEDS: GUAIFENESIN 20 MG/ML 5ML CUP PO (11:22)
[2017-08-20 13:33] LABS: AADO2 Arterial 378.3 mmHg (7.0-24.0); Allen Test ACCEPTAB; Arterial Base Excess 2.6 mmol/L (-3.0-3); Arterial Blood Gas Oxygen Sat 95.6 mmHG (95.0-98.0); Arterial COHb 0.9 % (0.0-3.0); Arterial Fraction of Oxyhgb 94.5 % (93.0-99.0); Arterial HCO3 27.2 mmol/L (22.0-26.0); Arterial MetHb 0.2 % (0.0-1.5); Arterial Total Hemglobin 12.9 g/dl (12.0-18.0); Arterial pCO2 41.7 mmhg (35-45); MODE HFNC; Site Right Radial
[2017-08-20] MEDS: INSULIN HUMAN REGULAR 100 UNIT in SOD CHLORIDE 0.9% 99 ML IV ×2 (16:33)
[2017-08-20] MEDS ORDERED: DOCUSATE SODIUM 100 MG CAP PO (17:30)
[2017-08-20] MEDS: POLYETHYLENE GLYCOL 17 GM PACKET PO (17:48)
[2017-08-20] MEDS: morphine 2 MG INJ IV (19:33)
[2017-08-20] MEDS: ZIPRASIDONE 20 MG CAP PO (20:59)
[2017-08-20] MEDS: AMITRIPTYLINE 25 MG TAB PO (20:59)
[2017-08-20] MEDS: ATORVASTATIN 40 MG TAB PO (21:00)
[2017-08-21] MEDS: ACCU-CHEK XX ×24 (01:01→23:12)
[2017-08-21] MEDS: LEVALBUTEROL (NEB) 0.63 MG/3 ML AMP HHN ×4 (01:33→20:02)
[2017-08-21] MEDS: IPRATROPIUM (NEB) 0.5 MG/2.5 ML AMP HHN ×4 (01:33→20:02)
[2017-08-21] MEDS: POTASSIUM CHLORIDE 10 MEQ in DEXTROSE 5% 1,000 ML IV ×2 (03:49→16:23)
[2017-08-21 05:44] LABS: ADD MAN DIFF? NO
[2017-08-21 05:45] LABS: BASOPHILS % 0.2 % (0.0-2.0); EOSINOPHILS % 0.2 % (0.0-7.0); HEMATOCRIT 33.4 % (37.0-47.0); HEMOGLOBIN 11.1 g/dl (12.0-16.0); LYMPHOCYTES # 1.2 10^3/ul (0.8-2.9); LYMPHOCYTES % 23.6 % (15.0-51.0); MEAN CORPUSCULAR HEMOGLOBIN 31.4 pg (29.0-33.0); MEAN CORPUSCULAR HGB CONC 33.2 g/dl (32.0-37.0); MEAN CORPUSCULAR VOLUME 94.4 fl (82.0-101.0); MEAN PLATELET VOLUME 10.9 fl (7.4-10.4); MONOCYTE # 0.2 10^3/ul (0.3-0.9); NEUTROPHIL # 3.6 10^3/ul (1.6-7.5); NEUTROPHILS % 71.2 % (39.0-77.0); PLATELET COUNT 150 10^3/UL (140-415); RED BLOOD COUNT 3.54 10^6/ul (4.20-5.40); RED CELL DISTRIBUTION WIDTH 14.5 % (11.5-14.5)
[2017-08-21 06:07] LABS: ALBUMIN 2.8 g/dl (3.3-4.9); ANION GAP 9 (8-16); BLOOD UREA NITROGEN 9 mg/dl (7-20); CALCIUM 8.8 mg/dl (8.4-10.2); CARBON DIOXIDE 32 mmol/L (21-31); CHLORIDE 108 mmol/L (97-110); CREATININE 0.67 mg/dl (0.44-1.00); GLUCOSE 116 mg/dl (70-220); MAGNESIUM 1.9 mg/dl (1.7-2.5); PHOSPHORUS 2.6 mg/dl (2.5-4.9); POTASSIUM 4.1 mmol/L (3.5-5.1); SODIUM 145 mmol/L (135-144)
[2017-08-21 06:08] LABS: ANION GAP 10 (8-16); BLOOD UREA NITROGEN 9 mg/dl (7-20); CALCIUM 8.8 mg/dl (8.4-10.2); CARBON DIOXIDE 31 mmol/L (21-31); CHLORIDE 108 mmol/L (97-110); CREATININE 0.66 mg/dl (0.44-1.00); GLUCOSE 114 mg/dl (70-220); POTASSIUM 4.1 mmol/L (3.5-5.1); SODIUM 145 mmol/L (135-144)
[2017-08-21 06:10] LABS: LIPASE 391 U/L (23-300)
[2017-08-21] MEDS: morphine 2 MG INJ IV ×3 (06:30→18:31)
[2017-08-21 08:41] LABS: AADO2 Arterial 400.4 mmHg (7.0-24.0); Allen Test ACCEPTAB; Arterial Base Excess 3.2 mmol/L (-3.0-3); Arterial Blood Gas Oxygen Sat 96.7 mmHG (95.0-98.0); Arterial COHb 0.8 % (0.0-3.0); Arterial Fraction of Oxyhgb 95.7 % (93.0-99.0); Arterial HCO3 28.1 mmol/L (22.0-26.0); Arterial MetHb 0.2 % (0.0-1.5); Arterial Total Hemglobin 11.7 g/dl (12.0-18.0); Arterial pCO2 44.1 mmhg (35-45); MODE HFNC; Site Right Radial
[2017-08-21] MEDS: HALOPERIDOL 5 MG TAB PO ×2 (09:36→20:43)
[2017-08-21] MEDS: BENZTROPINE 1 MG TAB PO ×2 (09:38→20:43)
[2017-08-21] MEDS: METHYLPREDNISOLONE 40 MG INJ IV ×2 (09:39→20:43)
[2017-08-21] MEDS: GABAPENTIN 400 MG CAP PO ×3 (09:39→20:43)
[2017-08-21] MEDS: ENOXAPARIN 80 MG/0.8 ML SYG SC ×2 (09:40→20:53)
[2017-08-21] MEDS: CEFEPIME 1GM/50 ML (PMX) 50 ML IVPB ×2 (09:40→20:43)
[2017-08-21] MEDS: POLYETHYLENE GLYCOL 17 GM PACKET PO (09:40)
[2017-08-21] MEDS: FUROSEMIDE 40 MG INJ IV ×2 (09:41→18:04)
[2017-08-21] MEDS: NICOTINE (14 MG/24 HR) PATCH TRANSDERM (12:19)
[2017-08-21] MEDS: INSULIN HUMAN REGULAR 100 UNIT in SOD CHLORIDE 0.9% 99 ML IV (14:50)
[2017-08-21] MEDS: ZIPRASIDONE 20 MG CAP PO (20:42)
[2017-08-21] MEDS: AMITRIPTYLINE 25 MG TAB PO (20:42)
[2017-08-21] MEDS: ATORVASTATIN 40 MG TAB PO (20:43)
[2017-08-22] MEDS: ACCU-CHEK XX ×15 (01:44→13:36)
[2017-08-22] MEDS: IPRATROPIUM (NEB) 0.5 MG/2.5 ML AMP HHN ×4 (02:08→19:43)
[2017-08-22] MEDS: LEVALBUTEROL (NEB) 0.63 MG/3 ML AMP HHN ×4 (02:08→19:43)
[2017-08-22] MEDS: morphine 2 MG INJ IV ×3 (02:33→18:49)
[2017-08-22] MEDS: POTASSIUM CHLORIDE 10 MEQ in DEXTROSE 5% 1,000 ML IV (03:37)
[2017-08-22] MEDS: FUROSEMIDE 40 MG INJ IV ×2 (05:57→18:01)
[2017-08-22 06:48] LABS: ANION GAP 11 (8-16); BLOOD UREA NITROGEN 9 mg/dl (7-20); CALCIUM 8.9 mg/dl (8.4-10.2); CARBON DIOXIDE 35 mmol/L (21-31); CHLORIDE 100 mmol/L (97-110); CREATININE 0.69 mg/dl (0.44-1.00); GLUCOSE 137 mg/dl (70-220); MAGNESIUM 1.6 mg/dl (1.7-2.5); PHOSPHORUS 3.1 mg/dl (2.5-4.9); POTASSIUM 3.9 mmol/L (3.5-5.1); SODIUM 142 mmol/L (135-144)
[2017-08-22] MEDS: HALOPERIDOL 5 MG TAB PO ×2 (08:55→21:24)
[2017-08-22] MEDS: BENZTROPINE 1 MG TAB PO ×2 (08:57→21:27)
[2017-08-22] MEDS: GABAPENTIN 400 MG CAP PO ×3 (08:57→21:24)
[2017-08-22] MEDS: CEFEPIME 1GM/50 ML (PMX) 50 ML IVPB ×2 (08:58→21:25)
[2017-08-22] MEDS: METHYLPREDNISOLONE 40 MG INJ IV ×2 (08:58→21:25)
[2017-08-22] MEDS: NICOTINE (14 MG/24 HR) PATCH TRANSDERM (09:00)
[2017-08-22] MEDS: POLYETHYLENE GLYCOL 17 GM PACKET PO (09:00)
[2017-08-22] MEDS: ENOXAPARIN 80 MG/0.8 ML SYG SC (09:01)
[2017-08-22 09:09] LABS: AADO2 Arterial 216.5 mmHg (7.0-24.0); Allen Test ACCEPTAB; Arterial Base Excess 11.1 mmol/L (-3.0-3); Arterial HCO3 36.6 mmol/L (22.0-26.0); Arterial pCO2 50.5 mmhg (35-45); MODE HFNC; Site Right Radial
[2017-08-22] MEDS: DEXTROSE 5% IV (10:07)
[2017-08-22] MEDS: POTASSIUM CHLORIDE IV (10:07)
[2017-08-22] MEDS: INSULIN HUMAN REGULAR 100 UNIT in SOD CHLORIDE 0.9% 99 ML IV (10:59)
[2017-08-22] MEDS: MAGNESIUM OXIDE 400 MG TAB PO (12:16)
[2017-08-22] MEDS: FAMOTIDINE 20 MG TAB PO (14:19)
[2017-08-22] MEDS: INSULIN GLARGINE [LANtus] 3 ML PEN SC ×2 (14:20→16:54)
[2017-08-22 14:57] LABS: LIPASE 347 U/L (23-300)
[2017-08-22] MEDS: BARIUM SULF 2% 450 ML BTL (BERRY SMOOTHIE) PO (17:34)
[2017-08-22] MEDS: INSULIN ASPART [NOVOLOG] 3 ML PEN SC ×3 (17:35→21:00)
[2017-08-22] MEDS: SOD CHLORIDE 0.9% 100 ML (21:05)
[2017-08-22] MEDS: IODIXANOL LOCM 100 ML BTL (21:05)
[2017-08-22] MEDS: APIXABAN 5 MG TABLET PO (21:24)
[2017-08-22] MEDS: ATORVASTATIN 40 MG TAB PO (21:24)
[2017-08-22] MEDS: ZIPRASIDONE 20 MG CAP PO (21:25)
[2017-08-22] MEDS: AMITRIPTYLINE 25 MG TAB PO (21:27)
[2017-08-23] MEDS: LEVALBUTEROL (NEB) 0.63 MG/3 ML AMP HHN ×4 (01:10→20:17)
[2017-08-23] MEDS: IPRATROPIUM (NEB) 0.5 MG/2.5 ML AMP HHN ×4 (01:10→20:17)
[2017-08-23] MEDS: ACCU-CHEK XX (02:51)
[2017-08-23] MEDS: morphine 2 MG INJ IV ×4 (04:25→20:22)
[2017-08-23 05:04] LABS: AADO2 Arterial 132.9 mmHg (7.0-24.0); Allen Test ACCEPTAB; Arterial Base Excess 10.4 mmol/L (-3.0-3); Arterial Blood Gas Oxygen Sat 95.1 mmHG (95.0-98.0); Arterial COHb 0.5 % (0.0-3.0); Arterial Fraction of Oxyhgb 94.3 % (93.0-99.0); Arterial HCO3 37.6 mmol/L (22.0-26.0); Arterial MetHb 0.3 % (0.0-1.5); Arterial Total Hemglobin 13.1 g/dl (12.0-18.0); Arterial pCO2 62.5 mmhg (35-45); MODE HFNC; Site Right Radial
[2017-08-23 07:16] LABS: LIPASE 402 U/L (23-300)
[2017-08-23 07:16] LABS: ANION GAP 9 (8-16); BLOOD UREA NITROGEN 10 mg/dl (7-20); CALCIUM 8.6 mg/dl (8.4-10.2); CARBON DIOXIDE 39 mmol/L (21-31); CHLORIDE 96 mmol/L (97-110); CREATININE 0.76 mg/dl (0.44-1.00); GLUCOSE 269 mg/dl (70-220); MAGNESIUM 1.6 mg/dl (1.7-2.5); PHOSPHORUS 4.5 mg/dl (2.5-4.9); POTASSIUM 4.4 mmol/L (3.5-5.1); SODIUM 140 mmol/L (135-144)
[2017-08-23] MEDS: PANTOPRAZOLE 40 MG INJ IV (07:58)
[2017-08-23] MEDS: FUROSEMIDE 40 MG INJ IV ×2 (07:59→17:41)
[2017-08-23] MEDS: INSULIN ASPART [NOVOLOG] 3 ML PEN SC ×6 (08:04→17:26)
[2017-08-23] MEDS: NICOTINE (14 MG/24 HR) PATCH TRANSDERM (08:12)
[2017-08-23] MEDS: POLYETHYLENE GLYCOL 17 GM PACKET PO (08:12)
[2017-08-23] MEDS: METHYLPREDNISOLONE 40 MG INJ IV (08:13)
[2017-08-23] MEDS: APIXABAN 5 MG TABLET PO ×2 (08:13→20:07)
[2017-08-23] MEDS: CEFEPIME 1GM/50 ML (PMX) 50 ML IVPB (08:13)
[2017-08-23] MEDS: BENZTROPINE 1 MG TAB PO ×2 (08:13→20:05)
[2017-08-23] MEDS: GABAPENTIN 400 MG CAP PO ×3 (08:13→20:06)
[2017-08-23] MEDS: HALOPERIDOL 5 MG TAB PO ×2 (08:14→20:06)
[2017-08-23] MEDS: INSULIN GLARGINE [LANtus] 3 ML PEN SC (09:00)
[2017-08-23] MEDS: MAGNESIUM SULFATE 3 GM in DEXTROSE 5% 100 ML IVPB (11:24)
[2017-08-23] MEDS: NYSTATIN SUSP 5 ML CUP PO ×3 (17:42→20:21)
[2017-08-23] MEDS: AMITRIPTYLINE 25 MG TAB PO (20:05)
[2017-08-23] MEDS: ATORVASTATIN 40 MG TAB PO (20:06)
[2017-08-23] MEDS: ZIPRASIDONE 20 MG CAP PO (20:22)
[2017-08-24] MEDS: IPRATROPIUM (NEB) 0.5 MG/2.5 ML AMP HHN ×4 (01:12→22:09)
[2017-08-24] MEDS: LEVALBUTEROL (NEB) 0.63 MG/3 ML AMP HHN ×4 (01:12→22:09)
[2017-08-24] MEDS: ACCU-CHEK XX (02:00)
[2017-08-24] MEDS: morphine 2 MG INJ IV ×5 (02:30→22:07)
[2017-08-24] MEDS: PANTOPRAZOLE 40 MG INJ IV (05:11)
[2017-08-24] MEDS: FUROSEMIDE 40 MG INJ IV (05:11)
[2017-08-24 06:01] LABS: ALBUMIN 2.8 g/dl (3.3-4.9); BLOOD UREA NITROGEN 10 mg/dl (7-20); CALCIUM 8.5 mg/dl (8.4-10.2); CHLORIDE 95 mmol/L (97-110); CREATININE 0.75 mg/dl (0.44-1.00); GLUCOSE 97 mg/dl (70-220); PHOSPHORUS 4.4 mg/dl (2.5-4.9); POTASSIUM 3.3 mmol/L (3.5-5.1); SODIUM 142 mmol/L (135-144)
[2017-08-24 06:08] LABS: ANION GAP 10 (8-16)
[2017-08-24 06:40] LABS: CARBON DIOXIDE 40 mmol/L (21-31)
[2017-08-24] MEDS: INSULIN ASPART [NOVOLOG] 3 ML PEN SC ×7 (07:35→21:59)
[2017-08-24] MEDS: POLYETHYLENE GLYCOL 17 GM PACKET PO (09:00)
[2017-08-24] MEDS: BENZTROPINE 1 MG TAB PO ×2 (09:34→21:43)
[2017-08-24] MEDS: NICOTINE (14 MG/24 HR) PATCH TRANSDERM (09:34)
[2017-08-24] MEDS: NYSTATIN SUSP 5 ML CUP PO ×4 (09:34→21:42)
[2017-08-24] MEDS: GABAPENTIN 400 MG CAP PO ×3 (09:35→21:42)
[2017-08-24] MEDS: METHYLPREDNISOLONE 40 MG INJ IV (09:35)
[2017-08-24] MEDS: HALOPERIDOL 5 MG TAB PO ×2 (09:35→21:43)
[2017-08-24] MEDS: APIXABAN 5 MG TABLET PO ×2 (09:35→21:43)
[2017-08-24] MEDS: INSULIN GLARGINE [LANtus] 3 ML PEN SC (09:37)
[2017-08-24] MEDS: KCL 30 MEQ in NS 250 ML IVPB X1 IVPB (11:01)
[2017-08-24] MEDS: ONDANSETRON 4 MG INJ IV (18:15)
[2017-08-24] MEDS: AMITRIPTYLINE 25 MG TAB PO (21:42)
[2017-08-24] MEDS: ATORVASTATIN 40 MG TAB PO (21:43)
[2017-08-24] MEDS: ZIPRASIDONE 20 MG CAP PO (21:43)
[2017-08-25] MEDS: LEVALBUTEROL (NEB) 0.63 MG/3 ML AMP HHN ×4 (02:00→20:44)
[2017-08-25] MEDS: IPRATROPIUM (NEB) 0.5 MG/2.5 ML AMP HHN ×4 (02:00→20:44)
[2017-08-25] MEDS: morphine 2 MG INJ IV ×6 (02:11→22:00)
[2017-08-25] MEDS: ACCU-CHEK XX (02:11)
[2017-08-25] MEDS: PANTOPRAZOLE 40 MG INJ IV (05:12)
[2017-08-25] MEDS: METHYLPREDNISOLONE 40 MG INJ IV (08:12)
[2017-08-25] MEDS: GABAPENTIN 400 MG CAP PO ×3 (08:13→21:53)
[2017-08-25] MEDS: FUROSEMIDE 40 MG INJ IV (08:14)
[2017-08-25] MEDS: NYSTATIN SUSP 5 ML CUP PO ×4 (08:14→21:52)
[2017-08-25] MEDS: APIXABAN 5 MG TABLET PO ×2 (08:14→21:54)
[2017-08-25] MEDS: HALOPERIDOL 5 MG TAB PO ×2 (08:14→21:54)
[2017-08-25] MEDS: NICOTINE (14 MG/24 HR) PATCH TRANSDERM (08:15)
[2017-08-25] MEDS: POLYETHYLENE GLYCOL 17 GM PACKET PO (08:16)
[2017-08-25] MEDS: BENZTROPINE 1 MG TAB PO ×2 (08:29→21:52)
[2017-08-25] MEDS: INSULIN ASPART [NOVOLOG] 3 ML PEN SC ×7 (08:31→21:58)
[2017-08-25 09:05] LABS: LIPASE 380 U/L (23-300)
[2017-08-25 09:05] LABS: AMYLASE 114 U/L (11-123)
[2017-08-25] MEDS: INSULIN GLARGINE [LANtus] 3 ML PEN SC (10:10)
[2017-08-25 11:29] LABS: ALBUMIN 3.2 g/dl (3.3-4.9); ANION GAP 21 (8-16); BLOOD UREA NITROGEN 9 mg/dl (7-20); CALCIUM 9.2 mg/dl (8.4-10.2); CARBON DIOXIDE 27 mmol/L (21-31); CHLORIDE 101 mmol/L (97-110); CREATININE 0.75 mg/dl (0.44-1.00); GLUCOSE 192 mg/dl (70-220); MAGNESIUM 2.1 mg/dl (1.7-2.5); PHOSPHORUS 4.2 mg/dl (2.5-4.9); POTASSIUM 4.7 mmol/L (3.5-5.1); SODIUM 144 mmol/L (135-144)
[2017-08-25] MEDS: ATORVASTATIN 40 MG TAB PO (21:52)
[2017-08-25] MEDS: AMITRIPTYLINE 25 MG TAB PO (21:52)
[2017-08-25] MEDS: ZIPRASIDONE 20 MG CAP PO (21:53)
[2017-08-26] MEDS: ACCU-CHEK XX (03:00)
[2017-08-26] MEDS: IPRATROPIUM (NEB) 0.5 MG/2.5 ML AMP HHN ×4 (03:08→20:18)
[2017-08-26] MEDS: LEVALBUTEROL (NEB) 0.63 MG/3 ML AMP HHN ×4 (03:09→20:18)
[2017-08-26] MEDS: morphine 2 MG INJ IV ×5 (03:35→20:04)
[2017-08-26] MEDS: PANTOPRAZOLE 40 MG INJ IV (05:48)
[2017-08-26] MEDS: INSULIN ASPART [NOVOLOG] 3 ML PEN SC ×8 (07:59→20:19)
[2017-08-26] MEDS: NYSTATIN SUSP 5 ML CUP PO ×4 (08:09→20:03)
[2017-08-26] MEDS: GABAPENTIN 400 MG CAP PO ×3 (08:09→20:03)
[2017-08-26] MEDS: HALOPERIDOL 5 MG TAB PO ×2 (08:10→20:02)
[2017-08-26] MEDS: APIXABAN 5 MG TABLET PO ×2 (08:11→20:01)
[2017-08-26] MEDS: NICOTINE (14 MG/24 HR) PATCH TRANSDERM (08:11)
[2017-08-26] MEDS: BENZTROPINE 1 MG TAB PO ×2 (08:12→20:01)
[2017-08-26] MEDS: POLYETHYLENE GLYCOL 17 GM PACKET PO (08:14)
[2017-08-26] MEDS: INSULIN GLARGINE [LANtus] 3 ML PEN SC (08:19)
[2017-08-26 08:23] LABS: LIPASE 454 U/L (23-300)
[2017-08-26 08:26] LABS: ALBUMIN 2.9 g/dl (3.3-4.9); ANION GAP 10 (8-16); BLOOD UREA NITROGEN 10 mg/dl (7-20); CALCIUM 8.7 mg/dl (8.4-10.2); CARBON DIOXIDE 36 mmol/L (21-31); CHLORIDE 100 mmol/L (97-110); CREATININE 0.76 mg/dl (0.44-1.00); GLUCOSE 152 mg/dl (70-220); MAGNESIUM 1.9 mg/dl (1.7-2.5); PHOSPHORUS 4.4 mg/dl (2.5-4.9); POTASSIUM 3.8 mmol/L (3.5-5.1); SODIUM 142 mmol/L (135-144)
[2017-08-26] MEDS ORDERED: INSULIN GLARGINE [LANtus] 3 ML PEN SC (09:00)
[2017-08-26] MEDS: FUROSEMIDE 40 MG INJ IV (09:20)
[2017-08-26] MEDS: INFLUENZA VIRUS VACCINE 0.5 ML SYG IM* (12:47)
[2017-08-26] MEDS: AMITRIPTYLINE 25 MG TAB PO (20:01)
[2017-08-26] MEDS: ATORVASTATIN 40 MG TAB PO (20:02)
[2017-08-26] MEDS: ZIPRASIDONE 20 MG CAP PO (20:02)
[2017-08-27] MEDS: LEVALBUTEROL (NEB) 0.63 MG/3 ML AMP HHN ×4 (01:50→20:27)
[2017-08-27] MEDS: IPRATROPIUM (NEB) 0.5 MG/2.5 ML AMP HHN ×4 (01:50→20:26)
[2017-08-27] MEDS: ACCU-CHEK XX (02:26)
[2017-08-27] MEDS: morphine 2 MG INJ IV ×5 (02:28→22:00)
[2017-08-27] MEDS: PANTOPRAZOLE 40 MG INJ IV (06:06)
[2017-08-27 08:24] LABS: ADD MAN DIFF? NO
[2017-08-27] MEDS: BENZTROPINE 1 MG TAB PO ×2 (08:33→21:59)
[2017-08-27] MEDS: APIXABAN 5 MG TABLET PO (08:33)
[2017-08-27] MEDS: FUROSEMIDE 40 MG INJ IV (08:34)
[2017-08-27] MEDS: HALOPERIDOL 5 MG TAB PO ×2 (08:34→21:56)
[2017-08-27] MEDS: NYSTATIN SUSP 5 ML CUP PO ×4 (08:34→21:59)
[2017-08-27] MEDS: GABAPENTIN 400 MG CAP PO ×3 (08:34→21:56)
[2017-08-27 08:37] LABS: BASOPHILS % 0.3 % (0.0-2.0); EOSINOPHILS % 0.5 % (0.0-7.0); HEMATOCRIT 33.6 % (37.0-47.0); HEMOGLOBIN 10.9 g/dl (12.0-16.0); LYMPHOCYTES # 2.6 10^3/ul (0.8-2.9); LYMPHOCYTES % 35.7 % (15.0-51.0); MEAN CORPUSCULAR HEMOGLOBIN 30.6 pg (29.0-33.0); MEAN CORPUSCULAR HGB CONC 32.4 g/dl (32.0-37.0); MEAN CORPUSCULAR VOLUME 94.4 fl (82.0-101.0); MEAN PLATELET VOLUME 10.1 fl (7.4-10.4); MONOCYTE # 0.4 10^3/ul (0.3-0.9); NEUTROPHIL # 4.2 10^3/ul (1.6-7.5); NEUTROPHILS % 57.6 % (39.0-77.0); PLATELET COUNT 223 10^3/UL (140-415); RED BLOOD COUNT 3.56 10^6/ul (4.20-5.40); RED CELL DISTRIBUTION WIDTH 13.9 % (11.5-14.5)
[2017-08-27 08:37] LABS: WHITE BLOOD COUNT 7.4 10^3/ul (4.8-10.8)
[2017-08-27] MEDS: NICOTINE (14 MG/24 HR) PATCH TRANSDERM (08:53)
[2017-08-27] MEDS: INSULIN GLARGINE [LANtus] 3 ML PEN SC (08:57)
[2017-08-27] MEDS: INSULIN ASPART [NOVOLOG] 3 ML PEN SC ×6 (08:57→21:00)
[2017-08-27] MEDS: POLYETHYLENE GLYCOL 17 GM PACKET PO (08:58)
[2017-08-27 09:03] LABS: LIPASE 425 U/L (23-300)
[2017-08-27 09:11] LABS: ALBUMIN 3.1 g/dl (3.3-4.9); ANION GAP 12 (8-16); BLOOD UREA NITROGEN 10 mg/dl (7-20); CALCIUM 9.1 mg/dl (8.4-10.2); CARBON DIOXIDE 34 mmol/L (21-31); CHLORIDE 98 mmol/L (97-110); CREATININE 0.73 mg/dl (0.44-1.00); GLUCOSE 180 mg/dl (70-220); MAGNESIUM 1.8 mg/dl (1.7-2.5); PHOSPHORUS 3.9 mg/dl (2.5-4.9); POTASSIUM 3.9 mmol/L (3.5-5.1); SODIUM 140 mmol/L (135-144)
[2017-08-27 09:32] LABS: AADO2 Arterial 34.4 mmHg (7.0-24.0); Allen Test ACCEPTAB; Arterial Base Excess 7.9 mmol/L (-3.0-3); Arterial Blood Gas Oxygen Sat 97.2 mmHG (95.0-98.0); Arterial COHb 0.3 % (0.0-3.0); Arterial Fraction of Oxyhgb 96.8 % (93.0-99.0); Arterial HCO3 33.4 mmol/L (22.0-26.0); Arterial MetHb 0.1 % (0.0-1.5); Arterial Total Hemglobin 13.8 g/dl (12.0-18.0); Arterial pCO2 49.9 mmhg (35-45); MODE NASAL CANNULA; Site Left Radial
[2017-08-27] MEDS: AMITRIPTYLINE 25 MG TAB PO (21:55)
[2017-08-27] MEDS: ATORVASTATIN 40 MG TAB PO (21:59)
[2017-08-27] MEDS: ZIPRASIDONE 20 MG CAP PO (21:59)
[2017-08-27] MEDS: ENOXAPARIN 100 MG/ML SYG SC (22:10)
[2017-08-27] MEDS: DEXTROSE 5%-0.45% NACL 1,000 ML IV (22:50)
[2017-08-28] MEDS ORDERED: INSULIN ASPART [NOVOLOG] 3 ML PEN SC (01:00)
[2017-08-28] MEDS: Insulin NOVOLOG SS MODERATE Algorithm(NPO/TPN/ENTERAL FEEDS) SC ×6 (01:00→20:20)
[2017-08-28] MEDS: IPRATROPIUM (NEB) 0.5 MG/2.5 ML AMP HHN ×4 (02:58→20:47)
[2017-08-28] MEDS: LEVALBUTEROL (NEB) 0.63 MG/3 ML AMP HHN ×4 (02:58→20:47)
[2017-08-28] MEDS: PANTOPRAZOLE 40 MG INJ IV (06:12)
[2017-08-28] MEDS: morphine 2 MG INJ IV (06:16)
[2017-08-28] MEDS: INSULIN ASPART [NOVOLOG] 3 ML PEN SC ×3 (07:55→17:41)
[2017-08-28 08:07] LABS: ADD MAN DIFF? NO
[2017-08-28 08:13] LABS: BASOPHILS % 0.4 % (0.0-2.0); EOSINOPHILS % 0.6 % (0.0-7.0); HEMATOCRIT 33.2 % (37.0-47.0); HEMOGLOBIN 10.9 g/dl (12.0-16.0); LYMPHOCYTES # 2.8 10^3/ul (0.8-2.9); LYMPHOCYTES % 39.8 % (15.0-51.0); MEAN CORPUSCULAR HEMOGLOBIN 31.4 pg (29.0-33.0); MEAN CORPUSCULAR HGB CONC 32.8 g/dl (32.0-37.0); MEAN CORPUSCULAR VOLUME 95.7 fl (82.0-101.0); MEAN PLATELET VOLUME 10.1 fl (7.4-10.4); MONOCYTE # 0.4 10^3/ul (0.3-0.9); MONOCYTES % 5.5 % (0.0-11.0); NEUTROPHIL # 3.8 10^3/ul (1.6-7.5); PLATELET COUNT 206 10^3/UL (140-415); RED BLOOD COUNT 3.47 10^6/ul (4.20-5.40); RED CELL DISTRIBUTION WIDTH 14.3 % (11.5-14.5)
[2017-08-28 08:13] LABS: WHITE BLOOD COUNT 7.1 10^3/ul (4.8-10.8)
[2017-08-28] MEDS: HALOPERIDOL 5 MG TAB PO ×2 (08:34→20:15)
[2017-08-28] MEDS: NYSTATIN SUSP 5 ML CUP PO ×4 (08:34→20:16)
[2017-08-28] MEDS: BENZTROPINE 1 MG TAB PO ×2 (08:35→20:16)
[2017-08-28] MEDS: GABAPENTIN 400 MG CAP PO ×3 (08:35→20:15)
[2017-08-28] MEDS: NICOTINE (14 MG/24 HR) PATCH TRANSDERM (08:36)
[2017-08-28 08:42] LABS: AMYLASE 116 U/L (11-123)
[2017-08-28 08:42] LABS: LIPASE 294 U/L (23-300)
[2017-08-28 08:46] LABS: ANION GAP 12 (8-16); BLOOD UREA NITROGEN 7 mg/dl (7-20); CALCIUM 8.9 mg/dl (8.4-10.2); CARBON DIOXIDE 33 mmol/L (21-31); CHLORIDE 99 mmol/L (97-110); GLUCOSE 160 mg/dl (70-220); MAGNESIUM 1.7 mg/dl (1.7-2.5); PHOSPHORUS 4.6 mg/dl (2.5-4.9); POTASSIUM 4.4 mmol/L (3.5-5.1); SODIUM 140 mmol/L (135-144)
[2017-08-28] MEDS: FUROSEMIDE 40 MG INJ IV (08:48)
[2017-08-28] MEDS: POLYETHYLENE GLYCOL 17 GM PACKET PO (08:49)
[2017-08-28] MEDS: DEXTROSE 5%-0.45% NACL 1,000 ML IV ×2 (08:52→20:17)
[2017-08-28] MEDS: INSULIN GLARGINE [LANtus] 3 ML PEN SC (09:08)
[2017-08-28] MEDS: ENOXAPARIN 100 MG/ML SYG SC ×2 (09:08→20:19)
[2017-08-28] MEDS ORDERED: POLYETHYLENE GLYCOL 17 GM PACKET PO (13:00)
[2017-08-28] MEDS: LACTULOSE 30ML CUP PO (14:43)
[2017-08-28] MEDS: ONDANSETRON 4 MG INJ IV (14:43)
[2017-08-28] MEDS: ACETAMINOPHEN 1000MG/100ML IV 100 ML IVPB ×2 (14:50→21:56)
[2017-08-28] MEDS: ZIPRASIDONE 20 MG CAP PO (20:15)
[2017-08-28] MEDS: ATORVASTATIN 40 MG TAB PO (20:15)
[2017-08-28] MEDS: AMITRIPTYLINE 25 MG TAB PO (20:15)
[2017-08-29] MEDS: Insulin NOVOLOG SS MODERATE Algorithm(NPO/TPN/ENTERAL FEEDS) SC (00:17)
[2017-08-29] MEDS: LEVALBUTEROL (NEB) 0.63 MG/3 ML AMP HHN ×4 (02:53→21:40)
[2017-08-29] MEDS: IPRATROPIUM (NEB) 0.5 MG/2.5 ML AMP HHN ×4 (02:53→21:39)
[2017-08-29] MEDS: PANTOPRAZOLE 40 MG INJ IV (05:55)
[2017-08-29] MEDS: DEXTROSE 5%-0.45% NACL 1,000 ML IV (05:56)
[2017-08-29] MEDS: INSULIN ASPART [NOVOLOG] 3 ML PEN SC ×7 (07:55→20:49)
[2017-08-29] MEDS: INSULIN GLARGINE [LANtus] 3 ML PEN SC (08:22)
[2017-08-29] MEDS: NYSTATIN SUSP 5 ML CUP PO ×4 (08:27→20:45)
[2017-08-29] MEDS: HALOPERIDOL 5 MG TAB PO (08:28)
[2017-08-29] MEDS: GABAPENTIN 400 MG CAP PO ×3 (08:28→20:44)
[2017-08-29] MEDS: NICOTINE (14 MG/24 HR) PATCH TRANSDERM (08:28)
[2017-08-29] MEDS: BENZTROPINE 1 MG TAB PO (08:34)
[2017-08-29] MEDS: FUROSEMIDE 40 MG INJ IV (08:35)
[2017-08-29] MEDS: ENOXAPARIN 100 MG/ML SYG SC ×2 (08:47→20:46)
[2017-08-29] MEDS: morphine 2 MG INJ IV ×3 (09:09→19:48)
[2017-08-29 09:32] LABS: ANION GAP 14 (8-16); BLOOD UREA NITROGEN 3 mg/dl (7-20); CARBON DIOXIDE 29 mmol/L (21-31); CHLORIDE 106 mmol/L (97-110); CREATININE 0.84 mg/dl (0.44-1.00); GLUCOSE 138 mg/dl (70-220); POTASSIUM 3.9 mmol/L (3.5-5.1); SODIUM 145 mmol/L (135-144)
[2017-08-29] MEDS: NYSTATIN 15 GM CR TOP ×2 (12:49→20:47)
[2017-08-29] MEDS: LACTULOSE 30ML CUP PO (20:40)
[2017-08-29] MEDS: ZIPRASIDONE 20 MG CAP PO (20:42)
[2017-08-29] MEDS: ATORVASTATIN 40 MG TAB PO (20:43)
[2017-08-29] MEDS: MIRTAZAPINE 15 MG TAB PO (20:45)
[2017-08-29] MEDS: LITHIUM CARBONATE (SR) 300 MG TAB PO (22:49)
[2017-08-30] MEDS: LITHIUM CARBONATE (SR) 300 MG TAB PO ×2 (00:22→20:37)
[2017-08-30] MEDS: morphine 2 MG INJ IV ×5 (01:31→20:41)
[2017-08-30] MEDS: LEVALBUTEROL (NEB) 0.63 MG/3 ML AMP HHN ×4 (02:20→19:29)
[2017-08-30] MEDS: IPRATROPIUM (NEB) 0.5 MG/2.5 ML AMP HHN ×4 (02:20→19:29)
[2017-08-30] MEDS: ACCU-CHEK XX (02:32)
[2017-08-30] MEDS: PANTOPRAZOLE (EC) 40 MG TAB PO (06:16)
[2017-08-30] MEDS: INSULIN ASPART [NOVOLOG] 3 ML PEN SC ×7 (07:55→20:37)
[2017-08-30] MEDS: INSULIN GLARGINE [LANtus] 3 ML PEN SC (08:20)
[2017-08-30] MEDS: ENOXAPARIN 100 MG/ML SYG SC (08:20)
[2017-08-30] MEDS: NYSTATIN SUSP 5 ML CUP PO ×4 (08:21→20:36)
[2017-08-30] MEDS: NICOTINE (14 MG/24 HR) PATCH TRANSDERM (08:21)
[2017-08-30] MEDS: GABAPENTIN 400 MG CAP PO ×3 (08:21→20:37)
[2017-08-30] MEDS: LACTULOSE 30ML CUP PO ×2 (08:22→20:36)
[2017-08-30] MEDS: NYSTATIN 15 GM CR TOP ×2 (08:22→20:44)
[2017-08-30] MEDS: FUROSEMIDE 40 MG INJ IV (08:23)
[2017-08-30 09:20] LABS: ADD MAN DIFF? NO
[2017-08-30 09:27] LABS: BASOPHIL # 0.1 10^3/ul (0.0-0.1); BASOPHILS % 0.8 % (0.0-2.0); EOSINOPHILS # 0.1 10^3/ul (0.0-0.5); EOSINOPHILS % 0.8 % (0.0-7.0); HEMATOCRIT 38.2 % (37.0-47.0); HEMOGLOBIN 12.1 g/dl (12.0-16.0); LYMPHOCYTES # 2.9 10^3/ul (0.8-2.9); LYMPHOCYTES % 45.3 % (15.0-51.0); MEAN CORPUSCULAR HEMOGLOBIN 30.9 pg (29.0-33.0); MEAN CORPUSCULAR HGB CONC 31.7 g/dl (32.0-37.0); MEAN CORPUSCULAR VOLUME 97.4 fl (82.0-101.0); MEAN PLATELET VOLUME 10.7 fl (7.4-10.4); MONOCYTE # 0.4 10^3/ul (0.3-0.9); MONOCYTES % 6.5 % (0.0-11.0); NEUTROPHILS % 46.1 % (39.0-77.0); PLATELET COUNT 189 10^3/UL (140-415); RED BLOOD COUNT 3.92 10^6/ul (4.20-5.40)
[2017-08-30 09:27] LABS: WHITE BLOOD COUNT 6.4 10^3/ul (4.8-10.8)
[2017-08-30 10:03] LABS: ANION GAP 16 (8-16); BLOOD UREA NITROGEN 9 mg/dl (7-20); CALCIUM 8.9 mg/dl (8.4-10.2); CARBON DIOXIDE 26 mmol/L (21-31); CHLORIDE 109 mmol/L (97-110); GLUCOSE 134 mg/dl (70-220); MAGNESIUM 1.9 mg/dl (1.7-2.5); PHOSPHORUS 4.2 mg/dl (2.5-4.9); POTASSIUM 4.4 mmol/L (3.5-5.1); SODIUM 147 mmol/L (135-144)
[2017-08-30] MEDS: FUROSEMIDE 20 MG TAB PO (17:51)
[2017-08-30] MEDS: ATORVASTATIN 40 MG TAB PO (20:36)
[2017-08-30] MEDS: APIXABAN 5 MG TABLET PO (20:36)
[2017-08-30] MEDS: ZIPRASIDONE 20 MG CAP PO (20:37)
[2017-08-30] MEDS: MIRTAZAPINE 15 MG TAB PO (20:37)
[2017-08-31] MEDS: ACCU-CHEK XX (01:22)
[2017-08-31] MEDS: IPRATROPIUM (NEB) 0.5 MG/2.5 ML AMP HHN ×3 (01:36→13:19)
[2017-08-31] MEDS: LEVALBUTEROL (NEB) 0.63 MG/3 ML AMP HHN ×3 (01:36→13:19)
[2017-08-31] MEDS: PANTOPRAZOLE (EC) 40 MG TAB PO (05:01)
[2017-08-31] MEDS: FUROSEMIDE 20 MG TAB PO ×2 (05:01→08:20)
[2017-08-31] MEDS: morphine 2 MG INJ IV (05:01)
[2017-08-31] MEDS: INSULIN ASPART [NOVOLOG] 3 ML PEN SC ×4 (07:55→12:09)
[2017-08-31] MEDS: NYSTATIN SUSP 5 ML CUP PO ×2 (08:19→13:14)
[2017-08-31] MEDS: LACTULOSE 30ML CUP PO (08:19)
[2017-08-31] MEDS: HYDROCODONE/APAP (5/325) TAB PO ×2 (08:20→13:14)
[2017-08-31] MEDS: GABAPENTIN 400 MG CAP PO ×2 (08:20→13:14)
[2017-08-31] MEDS: APIXABAN 5 MG TABLET PO (08:20)
[2017-08-31] MEDS: INSULIN GLARGINE [LANtus] 3 ML PEN SC (08:27)
[2017-08-31] MEDS: NICOTINE (14 MG/24 HR) PATCH TRANSDERM (08:30)
[2017-08-31] MEDS: NYSTATIN 15 GM CR TOP (08:30)
== END 2017-08-31 15:50 | disposition home or self-care (01) | DRG 881 ==
LOC: TEL 08-24 15:52 → E/R 13:06 → ICU 17:24
PROC: 06HY33Z Insertion of Infusion Device into Lower Vein, Percutaneous Approach (ICD-10-PCS; principal; 2017-08-16)
DX: F32.9 Major depressive disorder, single episode, unspecified (principal); J96.01 Acute respiratory failure with hypoxia; E11.10 Type 2 diabetes mellitus with ketoacidosis without coma; J18.9 Pneumonia, unspecified organism; K85.90 Acute pancreatitis without necrosis or infection, unspecified; E87.0 Hyperosmolality and hypernatremia; E87.2 Acidosis; F20.9 Schizophrenia, unspecified; F41.9 Anxiety disorder, unspecified; I10 Essential (primary) hypertension; Z79.4 Long term (current) use of insulin; E78.5 Hyperlipidemia, unspecified
CPT/HCPCS: 36415; 36569; 36600; 71045; 74176; 74177; 76937; 80048; 80053; 80061; 80069; 80178; 81001; 82010; 82043; 82150; 82803; 82962; 83690; 83735; 83880; 84100; 84132; 84484; 84703; 85025; 85610; 85730; 87081; 90686; 93306; 93970; 94640; 94660; 94664; 96361; 96372; 96374; 96375; 97110; 97116; 97162; 97530; 99291-25

== ENCOUNTER 2018-12-06 14:40 | Emergency (ER) | payer BC ==
[2018-12-06] MEDS: KETOROLAC 30 MG INJ IM (15:12)
[2018-12-06 15:28] LABS: ADD UMIC NO; UR ASCORBIC ACID NEGATIVE (NEGATIVE); UR BILIRUBIN (Dip) NEGATIVE (NEGATIVE); UR BLOOD (Dip) NEGATIVE (NEGATIVE); UR CLARITY CLEAR (CLEAR); UR COLOR YELLOW (YELLOW); UR GLUCOSE (Dip) 3+ mg/dL (NEGATIVE); UR KETONES (Dip) NEGATIVE (NEGATIVE); UR LEUKOCYTE ESTERASE (Dip) NEGATIVE Leu/ul (NEGATIVE); UR NITRITE (Dip) NEGATIVE (NEGATIVE); UR SPECIFIC GRAVITY (Dip) 1.013 (1.003-1.030); UR TOTAL PROTEIN (Dip) NEGATIVE (NEGATIVE); UR UROBILINOGEN (Dip) 1+ mg/dL (NEGATIVE)
[2018-12-06 15:49] LABS: TROPONIN-I < 0.012 ng/ml (0.000-0.120)
== END 2018-12-06 16:17 | disposition home or self-care (01) ==
LOC: E/R 14:40
DX: R42 Dizziness and giddiness (principal); I10 Essential (primary) hypertension; E11.9 Type 2 diabetes mellitus without complications; Z79.4 Long term (current) use of insulin; Z79.01 Long term (current) use of anticoagulants; Z87.891 Personal history of nicotine dependence
CPT/HCPCS: 81003; 82962; 84484; 93005; 96372; 99284-25

== ENCOUNTER 2018-12-31 11:47 | Day surgery (SDC) | payer BC ==
[2018-12-31] MEDS ORDERED: PROPOFOL 60 ML (15:00)
== END 2018-12-31 19:23 | disposition home or self-care (01) ==
LOC: GIL 11:47
DX: Z12.11 Encounter for screening for malignant neoplasm of colon (principal); K64.8 Other hemorrhoids; R63.4 Abnormal weight loss; K20.8 Other esophagitis; I10 Essential (primary) hypertension; E11.9 Type 2 diabetes mellitus without complications; E78.5 Hyperlipidemia, unspecified; Z79.4 Long term (current) use of insulin; E78.00 Pure hypercholesterolemia, unspecified
CPT/HCPCS: 43239; 82962; 88305; 88312; 88313